=== PATIENT | female | born 1950 | race African-American/Black ===

== ENCOUNTER 2019-08-12 07:03 | Emergency (ER) | payer OTHER, MEDICAID ==
[~2019-08-12] VITALS: Ht 157.5 cm; Wt 40.8 kg
[2019-08-12 07:05] VITALS: BP_SYST 124
--- NOTE | 2019-08-12 07:10 | NUR ---
Patient to ER bed to gown for evaluation. Side rails up. Report given to ESPINOZA BERNARD.
--- NOTE | 2019-08-12 07:20 | NUR ---
MD ROSADO AT BEDSIDE ASSESSING PT.
--- NOTE | 2019-08-12 07:25 | NUR ---
RN ASSESSING PT. PT IS STABLE AND CALM. REPORT IS PT IS FOR MEDICAL CLEARANCE FOR ADE GAMBINO. PT IS GIVEN A FULL REPORT ON THE PLAN OF CARE. PT IS RECEPTIVE. AWAITNG PT TO GIVE UA.
[2019-08-12 08:47] LABS: BASOPHILS % (AUTO) 1.1 % (0.0-2.0); EOSINOPHILS # (AUTO) 0.1 K/uL (0.0-0.4); EOSINOPHILS % (AUTO) 2.7 % (0.0-4.0); HEMATOCRIT 38.9 % (36-48); LYMPHOCYTES # (AUTO) 1.8 K/uL (1.0-5.5); LYMPHOCYTES % (AUTO) 42.1 % (20.5-51.5); MEAN CORPUSCULAR HEMOGLOBIN 31 pg (27-31); MEAN CORPUSCULAR HGB CONC 33 % (32-36); MEAN CORPUSCULAR VOLUME 92 fL (79.0-98.0); MONOCYTES # (AUTO) 0.3 K/uL (0.0-1.0); MONOCYTES % (AUTO) 7.3 % (1.7-9.3); NEUTROPHILS % (AUTO) 46.8 % (40.0-70.0); PLATELET COUNT (AUTO) 229 K/uL (130-430); RED BLOOD CELL COUNT(AUTO) 4.25 MIL/uL (4.2-6.2); RED CELL DISTRIBUTION WIDTH 13.4 % (9.0-15.0); WHITE BLOOD COUNT (AUTO) 4.2 K/uL (4.8-10.8)
[2019-08-12 09:11] LABS: ANION GAP 7 (5-15); CALCIUM 8.8 mg/dL (8.4-11.0); CHLORIDE 102 mmol/L (98-107); CREATININE 1.19 mg/dL (0.55-1.30); GLUCOSE 86 mg/dL (70-99); POTASSIUM 3.7 mmol/L (3.5-5.1); SODIUM SERUM 138 mmol/L (136-145); UREA NITROGEN, BLOOD 23 mg/dL (8-21)
[2019-08-12 09:15] LABS: ALANINE AMINOTRANSFERASE 29 U/L (12-78); ASPARTATE AMINOTRANSFERASE 27 U/L (10-37); CHOLESTEROL 152 mg/dL (<200); HDL CHOLESTEROL 74 mg/dL (>55); LDL CHOLESTEROL 61 mg/dL (<100); TOTAL BILIRUBIN 0.7 mg/dL (0.0-1.0); TRIGLYCERIDES 70 mg/dL (30-150)
[2019-08-12 09:17] LABS: GFR AFRICAN AMERICAN 58 mL/min (>90)
[2019-08-12 09:37] LABS: ACETAMINOPHEN < 1 ug/mL (1-30); ALCOHOL, BLOOD < 3 mg/dL (<10)
[2019-08-12 09:48] LABS: THYROID STIMULATING HORMONE 2.57 uIu/mL (0.36-3.74)
[2019-08-12 09:50] LABS: BILIRUBIN,URINE NEGATIVE (NEGATIVE); BLOOD, URINE NEGATIVE (NEGATIVE); CLARITY/URINE CLEAR (CLEAR); COLOR,URINE YELLOW (YELLOW); GLUCOSE,URINE NEGATIVE (NEGATIVE); KETONES,URINE NEGATIVE (NEGATIVE); LEUKOCYTE ESTERASE ,URINE NEGATIVE (NEGATIVE); NITRITE, URINE NEGATIVE (NEGATIVE); PH,URINE 5.5 (5.0-8.0); PROTEIN URINE NEGATIVE (NEGATIVE); UROBILINOGEN,URINE 0.2 (0.2-1.0)
[2019-08-12 10:01] LABS: BARBITURATE, URINE NEGATIVE (NEG <=200); BENZODIAZEPINE, URINE NEGATIVE (NEG <=150); CANNABINOID, URINE NEGATIVE (NEG <=50); COCAINE, URINE NEGATIVE (NEG <=150); METHAMPHETAMINES SCREEN,URINE NEGATIVE (NEG <=500); OPIATE, URINE NEGATIVE (NEG <=100); PHENCYCLIDINE SCREEN,URINE NEGATIVE (NEG <=25); UR TRICYCLIC ANTIDEPRESSANTS NEGATIVE (NEG <=300); URINE AMPHETAMINE NEGATIVE (NEG <=500); URINE METHADONE NEGATIVE (NEG <=200); URINE OXYCODONE SCREEN NEGATIVE (NEG <=100); URINE PROPOXYPHENE SCREEN NEGATIVE (NEG <=300)
--- NOTE | 2019-08-12 10:50 | NUR ---
PT HAS BEEN MEDICALLY CLEARED AND IS READY TO BE TRANSPORTED TO [facility]. REPORT GIVEN TO PAULETTE BERNARD IN [facility].
--- NOTE | 2019-08-12 11:10 | NUR ---
PT HAS BEEN TRANSPORTED VIA [facility] , 2 EMT
[2019-08-12 11:41] VITALS: BP_SYST 127
== END 2019-08-12 11:40 ==
LOC: SED 07:03
DX: F03.90 Unspecified dementia, unspecified severity, without behavioral disturbance, psychotic disturbance, mood disturbance, and anxiety (principal); R45.1 Restlessness and agitation
CPT/HCPCS: 36415; 80053; 80061; 80307; 81003; 83036; 84439; 84443; 84479; 85025; 99285; G0480; G0481; G0482